=== PATIENT | female | born 1950 | race African-American/Black ===

== ENCOUNTER 2018-04-18 17:26 | Inpatient (IN) | payer MEDICARE, MEDICAID ==
[~2018-04-18] VITALS: Ht 160 cm; Wt 49.5 kg
[2018-04-18] MEDS ORDERED: SODIUM CHLORIDE 0.9% 1000ML BAG (SEPSIS BOLUS) IV ONE (17:45)
[2018-04-18] MEDS ORDERED: VANCOMYCIN 1 G PREMIX 200 ML IV ONE (17:45)
[2018-04-18] MEDS ORDERED: ACETAMINOPHEN 325MG TABLET PO STA (17:45)
[2018-04-18] MEDS ORDERED: PIPERACILLIN/TAZ 3.375G PREMIX 50 ML IV ONE (17:45)
[2018-04-18 18:20] LABS: BG BASE EXCESS 3.9 mmol/L (-2.0-2.0); BG CARBOXYHEMOGLOBIN 0.4 % (0.5-1.5); BG DEOXYHEMOGLOBIN 5.1 % (0.0-5.0); BG HCO3 ACT 28.1 mmol/L (22.0-26.0); BG METHEMOGLOBIN 0.4 % (0.0-1.5); BG OXYGEN SATURATION 94.9 % (92.0-98.5); BG OXYHEMOGLOBIN 94.1 % (94.0-97.0); BG PCO2 41.1 mmHg (35.0-45.0); BG PH 7.453 (7.350-7.450); BG PO2 67.1 mmHg (75.0-100.0); BG SAMPLE SITE RIGHT BRACHIAL; BG TOTAL HEMOGLOBIN 11.2 g/dL (12.0-18.0); BG VENT MODE NASAL CANNULA
[2018-04-18] MEDS ORDERED: ACETAMINOPHEN 160MG/5ML UDC PO ONE (18:30)
[2018-04-18 19:22] LABS: HEMATOCRIT. 31.2 % (36.0-48.0); HEMOGLOBIN. 10.4 g/dL (12.0-16.0); MEAN CORPUSCULAR HEMOGLOBIN 27.5 pg (28.0-32.0); MEAN CORPUSCULAR VOLUME 82.7 fL (81.0-99.0); MEAN PLATELET VOLUME 9.8 fl (7.4-10.4); PLATELET 374 x1000/uL (130-400); RED BLOOD CELL COUNT 3.77 mill/uL (4.2-5.4); RED CELL DISTRIBUTION WIDTH 16.7 % (11.6-14.6)
[2018-04-18 19:23] LABS: CHLORIDE 99 mEq/L (98-107); INR 1.2
[2018-04-18 19:39] LABS: CLARITY URINE CLEAR (CLEAR); COLOR URINE YELLOW (YELLOW); KETONES URINE NEGATIVE (NEGATIVE); LEUKOCYTE ESTERASE URINE TRACE (NEGATIVE); NITRITE URINE NEGATIVE (NEGATIVE); OCCULT BLOOD URINE TRACE (NEGATIVE); PH URINE 7.5 (4.5-8.0); PROTEIN URINE 1+ (NEGATIVE); SPECIFIC GRAVITY URINE 1.018 (1.005-1.030); UROBILINOGEN URINE 0.2 E.U./dL (0.2-1.0)
[2018-04-18] MEDS ORDERED: ALBUTEROL (0.083%) 2.5MG/3ML NEB HHN ONE (19:45)
[2018-04-18] MEDS ORDERED: SODIUM BICARBONATE 8.4% 1 MEQ/ML 50ML SYR IV ONE (19:45)
[2018-04-18] MEDS ORDERED: INSULIN REGULAR (HUMULIN R) 300UNITS/3ML IV ONE (19:45)
[2018-04-18] MEDS ORDERED: DEXTROSE 50% WATER 50ML SYRINGE IV ONE (19:45)
[2018-04-18 19:49] LABS: PLATELET ESTIMATE NORMAL
[2018-04-18] MEDS ORDERED: QUET200T29 MT (20:00)
[2018-04-18 21:00] LABS: CHLORIDE 101 mEq/L (98-107)
[2018-04-18] MEDS ORDERED: SODIUM CHLORIDE 0.9% 1,000 ML IV ONE (21:00)
[2018-04-18] MEDS ORDERED: NA PHOS,M-B/NA PHOS,DI-BA ENEMA 118ML PR PRN (21:30)
[2018-04-18] MEDS ORDERED: LORAZEPAM 2MG/ML CPJ IV PRN (21:30)
[2018-04-18] MEDS ORDERED: PIPERACILLIN/TAZ 3.375G PREMIX 50 ML IV SCH (21:30)
[2018-04-18] MEDS ORDERED: GUAIFENESIN 200MG/10ML SUGAR FREE UDC PO PRN (21:30)
[2018-04-18] MEDS ORDERED: CLONIDINE 0.1MG TABLET PO PRN (21:30)
[2018-04-18] MEDS ORDERED: ACETAMINOPHEN 325MG TABLET PO PRN (21:30)
[2018-04-18] MEDS ORDERED: DIPHENHYDRAMINE 50MG/ML VIAL IV PRN (21:30)
[2018-04-18] MEDS ORDERED: DOCUSATE SODIUM 100MG CAPSULE PO PRN (21:30)
[2018-04-18] MEDS ORDERED: IPRATROPIUM/ALBUTEROL 0.5-3(2.5)MG/3ML NEB INH PRN (21:30)
[2018-04-18] MEDS ORDERED: ONDANSETRON HCL 4MG/2ML INJ IV PRN (21:30)
[2018-04-18] MEDS ORDERED: MAGNESIUM/ALUMINUM HYDROXIDE/SIMETHICONE 30ML UDC PO PRN (21:30)
[2018-04-18] MEDS ORDERED: ACETAMINOPHEN 650MG SUPP PR PRN (21:30)
[2018-04-19 00:14] LABS: CREATINE KINASE 66 IU/L (26-192)
[2018-04-19 00:15] LABS: CREATINE KINASE MB FRACTION < 1.0 ng/mL (0.5-3.6)
[2018-04-19 01:35] VITALS: BP 160/99
[2018-04-19] MEDS ORDERED: TRAM-529 PO (02:32)
[2018-04-19] MEDS ORDERED: ASPI-1158 PO (02:51)
[2018-04-19] MEDS ORDERED: FAMO20TA8 PO (02:51)
[2018-04-19] MEDS ORDERED: ISOS10TA2 PO (02:51)
[2018-04-19] MEDS ORDERED: ATOR40TA70 GT (02:51)
[2018-04-19] MEDS ORDERED: CALC-3 PO (02:51)
[2018-04-19] MEDS ORDERED: ACET-2853 PO (02:51)
[2018-04-19] MEDS ORDERED: ALEN70TA46 PO (02:51)
[2018-04-19] MEDS ORDERED: ALBU4TAB6 INH (02:51)
[2018-04-19] MEDS ORDERED: FERR325T6 PO (02:51)
[2018-04-19] MEDS ORDERED: METO-539 PO (02:51)
[2018-04-19] MEDS ORDERED: GABA-290 GT (02:51)
[2018-04-19] MEDS: MORPHINE SULFATE 4 MG/ML CPJ (NOT FOR IM USE) IV PRN ×2 (03:52→20:57)
[2018-04-19 04:00] VITALS: BP 163/103
[2018-04-19] MEDS: PIPERACILLIN/TAZ 2.25G PREMIX 50 ML IV SCH ×3 (04:50→18:07)
[2018-04-19 06:23] LABS: HEMATOCRIT. 30.7 % (36.0-48.0); HEMOGLOBIN. 9.8 g/dL (12.0-16.0); MEAN CORPUSCULAR HEMOGLOBIN 26.8 pg (28.0-32.0); MEAN CORPUSCULAR VOLUME 83.5 fL (81.0-99.0); PLATELET 262 x1000/uL (130-400); RED BLOOD CELL COUNT 3.67 mill/uL (4.2-5.4); RED CELL DISTRIBUTION WIDTH 15.9 % (11.6-14.6)
[2018-04-19] MEDS ORDERED: MEDICATION NOT ON FORMULARY EA (Gabapentin 600 MG) GT SCH (07:00)
[2018-04-19 07:09] LABS: CHLORIDE 103 mEq/L (98-107)
[2018-04-19] MEDS ORDERED: MEDICATION NOT ON FORMULARY EA (Famotidine 20 MG) PO SCH (07:10)
[2018-04-19 07:32] LABS: CREATINE KINASE 64 IU/L (26-192)
[2018-04-19] MEDS ORDERED: ATORVASTATIN CALCIUM 40MG TABLET GT SCH (07:40)
[2018-04-19 08:00] VITALS: BP 115/74
[2018-04-19] MEDS: METOPROLOL TARTRATE 50MG TABLET PO SCH ×2 (08:56→20:58)
[2018-04-19] MEDS: GABAPENTIN 300MG CAPSULE PO SCH ×2 (08:56→20:59)
[2018-04-19] MEDS: ASPIRIN 81MG EC TABLET PO SCH (08:57)
[2018-04-19] MEDS: FERROUS SULFATE 325MG TABLET PO SCH ×3 (08:57→18:03)
[2018-04-19] MEDS: ENOXAPARIN 40MG/0.4ML SYR SUBCUT SCH (08:58)
[2018-04-19] MEDS ORDERED: MEDICATION NOT ON FORMULARY EA (Ferrous Sulfate 325 MG) PO SCH (09:00)
[2018-04-19] MEDS ORDERED: MEDICATION NOT ON FORMULARY EA (Metoprolol Tartrate 50 MG) PO SCH (09:00)
[2018-04-19] MEDS ORDERED: MEDICATION NOT ON FORMULARY EA (Isosorbide Dinitrate 10 MG) PO SCH (09:00)
[2018-04-19] MEDS ORDERED: MEDICATION NOT ON FORMULARY EA (Aspirin (Aspirin Ec) 81 MG) PO SCH (09:30)
[2018-04-19] MEDS ORDERED: INFLUENZA VIRUS VACCINE(AFLURIA) 0.5ML SYR IM ONE (10:00)
[2018-04-19] MEDS: ISOSORBIDE DINITRATE 10MG TABLET PO SCH (10:07)
[2018-04-19] MEDS ORDERED: DEXTROSE 50% WATER 50ML SYRINGE IV PRN (11:00)
[2018-04-19 12:00] VITALS: BP 90/52
[2018-04-19] MEDS: IPRATROPIUM/ALBUTEROL 0.5-3(2.5)MG/3ML NEB HHN SCH (12:20)
[2018-04-19] MEDS: BLOOD SUGAR DIAGNOSTIC STRIP TEST SCH ×3 (12:29→20:33)
[2018-04-19 13:48] LABS: PLATELET ESTIMATE NORMAL
[2018-04-19] MEDS: HYDROCODONE/ACETAMINOPHEN 5/325MG TABLET PO PRN (15:32)
[2018-04-19 16:51] VITALS: BP 103/67
[2018-04-19 20:00] VITALS: BP 155/81
[2018-04-19] MEDS: ATORVASTATIN CALCIUM 40MG TABLET GT SCH (20:58)
[2018-04-19] MEDS: QUETIAPINE FUMARATE 100MG TABLET PO SCH (20:58)
[2018-04-19] MEDS ORDERED: MEDICATION NOT ON FORMULARY EA (Quetiapine Fumarate 1 TAB) MT SCH (21:00)
[2018-04-20] VITALS: BP 90/52
[2018-04-20] MEDS: PIPERACILLIN/TAZ 2.25G PREMIX 50 ML IV SCH ×5 (00:23→23:11)
[2018-04-20 04:00] VITALS: BP 92/54
[2018-04-20] MEDS: BLOOD SUGAR DIAGNOSTIC STRIP TEST SCH ×4 (05:58→21:35)
[2018-04-20] MEDS: FAMOTIDINE 20MG TABLET PO SCH (06:01)
[2018-04-20 06:11] LABS: HEMATOCRIT. 28.4 % (36.0-48.0); HEMOGLOBIN. 9.3 g/dL (12.0-16.0); MEAN CORPUSCULAR VOLUME 82.6 fL (81.0-99.0); MEAN PLATELET VOLUME 9.2 fl (7.4-10.4); PLATELET 284 x1000/uL (130-400); RED BLOOD CELL COUNT 3.44 mill/uL (4.2-5.4); RED CELL DISTRIBUTION WIDTH 15.9 % (11.6-14.6)
[2018-04-20 06:57] LABS: CHLORIDE 103 mEq/L (98-107)
[2018-04-20 07:09] LABS: PLATELET ESTIMATE NORMAL
[2018-04-20 08:07] VITALS: BP 100/60
[2018-04-20] MEDS: METOPROLOL TARTRATE 50MG TABLET PO SCH ×2 (09:00→21:20)
[2018-04-20] MEDS: ASPIRIN 81MG EC TABLET PO SCH (09:30)
[2018-04-20] MEDS: FERROUS SULFATE 325MG TABLET PO SCH ×3 (09:30→18:12)
[2018-04-20] MEDS: HYDROCODONE/ACETAMINOPHEN 5/325MG TABLET PO PRN ×2 (09:30→21:28)
[2018-04-20] MEDS: GABAPENTIN 300MG CAPSULE PO SCH ×2 (09:30→21:20)
[2018-04-20] MEDS: ENOXAPARIN 40MG/0.4ML SYR SUBCUT SCH (09:31)
[2018-04-20 12:00] VITALS: BP 94/61
[2018-04-20] MEDS ORDERED: ACETYLCYSTEINE 100MG/ML 10% VIAL 4ML INH SCH (14:00)
[2018-04-20] MEDS: IPRATROPIUM/ALBUTEROL 0.5-3(2.5)MG/3ML NEB HHN SCH ×3 (14:09→19:50)
[2018-04-20 16:00] VITALS: BP 98/61
[2018-04-20 20:00] VITALS: BP 116/69
[2018-04-20] MEDS: QUETIAPINE FUMARATE 100MG TABLET PO SCH (21:18)
[2018-04-20] MEDS: ATORVASTATIN CALCIUM 40MG TABLET GT SCH (21:37)
[2018-04-21] VITALS: BP 100/59
[2018-04-21] MEDS: IPRATROPIUM/ALBUTEROL 0.5-3(2.5)MG/3ML NEB HHN SCH ×4 (00:11→11:09)
[2018-04-21 04:00] VITALS: BP 101/66
[2018-04-21] MEDS: FAMOTIDINE 20MG TABLET PO SCH (06:39)
[2018-04-21] MEDS: PIPERACILLIN/TAZ 2.25G PREMIX 50 ML IV SCH ×2 (06:39→12:34)
[2018-04-21] MEDS: BLOOD SUGAR DIAGNOSTIC STRIP TEST SCH ×2 (06:39→12:34)
[2018-04-21] MEDS: FERROUS SULFATE 325MG TABLET PO SCH ×2 (06:41→12:34)
[2018-04-21 06:43] LABS: HEMATOCRIT. 26.7 % (36.0-48.0); HEMOGLOBIN. 8.7 g/dL (12.0-16.0); MEAN CORPUSCULAR VOLUME 83.2 fL (81.0-99.0); MEAN PLATELET VOLUME 9.2 fl (7.4-10.4); PLATELET 270 x1000/uL (130-400); RED BLOOD CELL COUNT 3.21 mill/uL (4.2-5.4)
[2018-04-21 06:52] LABS: CHLORIDE 104 mEq/L (98-107)
[2018-04-21 08:00] VITALS: BP 115/68
[2018-04-21] MEDS ORDERED: POTASSIUM CHLORIDE 20MEQ TABLET SR PO SCH (08:30)
[2018-04-21] MEDS: ASPIRIN 81MG EC TABLET PO SCH (09:42)
[2018-04-21] MEDS: ENOXAPARIN 40MG/0.4ML SYR SUBCUT SCH (09:42)
[2018-04-21] MEDS: ISOSORBIDE DINITRATE 10MG TABLET PO SCH (09:43)
[2018-04-21] MEDS: GABAPENTIN 300MG CAPSULE PO SCH (09:44)
[2018-04-21] MEDS: METOPROLOL TARTRATE 50MG TABLET PO SCH (09:44)
[2018-04-21 11:29] VITALS: BP 115/68
[2018-04-21 12:00] VITALS: BP 139/68
[2018-04-21 16:57] LABS: PLATELET ESTIMATE NORMAL
[2018-04-25] MEDS ORDERED: ALENDRONATE SODIUM 35MG TABLET PO SCH (07:00)
== END 2018-04-21 14:10 | disposition home or self-care (01) | DRG 871 ==
LOC: ER 17:26 → 8WST 20:18 → EDBEDREQTM 20:22 → EDBEDREQSVC 20:22 → EDBEDREQ 20:22 → ENRESERV 23:49
PROVIDERS: ADMIT Internal Medicine; ATTEND Internal Medicine
DX: A41.9 Sepsis, unspecified organism (principal); J18.9 Pneumonia, unspecified organism; J96.20 Acute and chronic respiratory failure, unspecified whether with hypoxia or hypercapnia; J45.901 Unspecified asthma with (acute) exacerbation; E44.0 Moderate protein-calorie malnutrition; Z68.1 Body mass index [BMI] 19.9 or less, adult; I10 Essential (primary) hypertension; E88.09 Other disorders of plasma-protein metabolism, not elsewhere classified; E78.5 Hyperlipidemia, unspecified; F31.9 Bipolar disorder, unspecified; I25.10 Atherosclerotic heart disease of native coronary artery without angina pectoris; D64.9 Anemia, unspecified; Z85.21 Personal history of malignant neoplasm of larynx; Z95.5 Presence of coronary angioplasty implant and graft; Z87.891 Personal history of nicotine dependence; Z93.1 Gastrostomy status; I25.2 Old myocardial infarction
CPT/HCPCS: 36415; 36600; 71045; 80048; 82375; 82550; 82553; 82805; 82962; 83605; 84443; 84484; 87804; 90686; 93005; 94640; 96365; 96368; 96375; 99291; C1893; J1650; J1815; J2270; J2543; J3370; J3490; J7030; J7608; J7611; J7620

== ENCOUNTER 2018-04-24 18:09 | Inpatient (IN) | payer MEDICARE, MEDICAID ==
[~2018-04-24] VITALS: Ht 160 cm; Wt 54.9 kg
[~2018-04-24 18:09] MED LIST: ACET-2853 PO; ALBU4TAB6 INH; ALEN70TA46 PO; ASPI-1158 PO; ATOR40TA70 GT; CALC-3 PO; FAMO20TA8 PO; FERR325T6 PO; GABA-290 GT; ISOS10TA2 PO; METO-539 PO; QUET200T29 MT
[2018-04-24 20:08] LABS: HEMATOCRIT. 27.2 % (36.0-48.0); MEAN CORPUSCULAR HEMOGLOBIN 27.3 pg (28.0-32.0); MEAN CORPUSCULAR VOLUME 82.4 fL (81.0-99.0); MEAN PLATELET VOLUME 7.5 fl (7.4-10.4); PLATELET 422 x1000/uL (130-400); RED CELL DISTRIBUTION WIDTH 16.1 % (11.6-14.6)
[2018-04-24 20:12] LABS: CHLORIDE 103 mEq/L (98-107)
[2018-04-24 21:22] LABS: PLATELET ESTIMATE NORMAL
[2018-04-24] MEDS ORDERED: ONDANSETRON HCL 4MG/2ML INJ IV PRN (22:15)
[2018-04-24] MEDS ORDERED: IPRATROPIUM/ALBUTEROL 0.5-3(2.5)MG/3ML NEB INH PRN (22:15)
[2018-04-24] MEDS ORDERED: ACETAMINOPHEN 650MG SUPP PR PRN (22:15)
[2018-04-24] MEDS ORDERED: MORPHINE SULFATE 2 MG/ML CPJ (NOT FOR IM USE) IV PRN (22:15)
[2018-04-24] MEDS ORDERED: NITROGLYCERIN 0.4MG TABLET SL SL PRN (22:15)
[2018-04-24] MEDS ORDERED: KCL 20MEQ/100ML PREMIX 100 ML IV NR (22:30)
[2018-04-24 23:02] LABS: TOTAL IRON BINDING CAPACITY 181 ug/dL (250-450)
[2018-04-24] MEDS ORDERED: IOHEXOL-300 100 ML BOTTLE ONE (23:03)
[2018-04-24] MEDS ORDERED: PIPERACILLIN/TAZ 3.375G PREMIX 50 ML IV NR (23:45)
[2018-04-24] MEDS ORDERED: VANCOMYCIN 1 G PREMIX 200 ML IV NR (23:45)
[2018-04-25 02:43] VITALS: BP_SYST 153; BP_SYST 163; BP_DIAS 104; BP_DIAS 99
[2018-04-25] MEDS: DEXT 5%/LACTATED RINGERS 1,000 ML IV SCH ×2 (03:29→13:47)
[2018-04-25 04:00] VITALS: BP_SYST 142; BP_SYST 163; BP_DIAS 104; BP_DIAS 85
[2018-04-25 08:00] VITALS: BP 170/107
[2018-04-25] MEDS ORDERED: PIPERACILLIN/TAZ 3.375G PREMIX 50 ML IV SCH (08:00)
[2018-04-25] MEDS: PANTOPRAZOLE SODIUM 40 MG/VIAL IV SCH (08:57)
[2018-04-25] MEDS: ENOXAPARIN 40MG/0.4ML SYR SUBCUT SCH (08:58)
[2018-04-25] MEDS ORDERED: LABETALOL HCL 200MG TABLET PO SCH (09:00)
[2018-04-25] MEDS: VANCOMYCIN 750 MG PREMIX 150 ML IV SCH ×2 (11:18→22:42)
[2018-04-25 12:00] VITALS: BP 149/82
[2018-04-25] MEDS ORDERED: VANCOMYCIN 1 G PREMIX 200 ML IV SCH (12:00)
[2018-04-25] MEDS: PIPERACILLIN/TAZ 3.375G PREMIX 50 ML IV SCH ×3 (12:56→23:48)
[2018-04-25] MEDS ORDERED: DIATR MEGLU/DIATRIZOATE SOLN 30ML ONE (14:05)
[2018-04-25 16:00] VITALS: BP 185/104
[2018-04-25] MEDS ORDERED: KCL 20MEQ/100ML PREMIX 100 ML IV NR (18:00)
[2018-04-25 20:00] VITALS: BP 142/89
[2018-04-25 20:10] LABS: HEMATOCRIT 31.3 % (36.0-48.0); HEMOGLOBIN 10.3 g/dL (12.0-16.0)
[2018-04-25] MEDS ORDERED: MORPHINE SULFATE 4 MG/ML CPJ (NOT FOR IM USE) IV PRN (20:28)
[2018-04-25] MEDS: LORAZEPAM 2MG/ML CPJ IV PRN (20:32)
[2018-04-26] VITALS (8 sets, daily range): BP systolic 130–188; BP diastolic 82–102
[2018-04-26] MEDS: LORAZEPAM 2MG/ML CPJ IV PRN (01:01)
[2018-04-26] MEDS: PIPERACILLIN/TAZ 3.375G PREMIX 50 ML IV SCH ×3 (06:08→17:23)
[2018-04-26 07:00] LABS: INR 1.1; PARTIAL THROMBOPLASTIN TIME 37.1 sec (23.4-31.0); PROTHROMBIN TIME 11.5 sec (9.1-11.1)
[2018-04-26 07:05] LABS: BASOPHILS % 1.1 % (0.0-2.0); EOSINOPHILS % 2.8 % (0.0-5.0); HEMATOCRIT. 30.8 % (36.0-48.0); HEMOGLOBIN. 10.1 g/dL (12.0-16.0); LYMPHOCYTES % 12.7 % (20.0-50.0); MEAN CORPUSCULAR HEMOGLOBIN 26.6 pg (28.0-32.0); MEAN PLATELET VOLUME 7.5 fl (7.4-10.4); MONOCYTES % 12.6 % (2.0-8.0); NEUTROPHILS % 70.8 % (40.0-76.0); PLATELET 501 x1000/uL (130-400); RED CELL DISTRIBUTION WIDTH 16.2 % (11.6-14.6)
[2018-04-26 07:40] LABS: CHLORIDE 103 mEq/L (98-107)
[2018-04-26] MEDS: PANTOPRAZOLE SODIUM 40 MG/VIAL IV SCH (09:16)
[2018-04-26] MEDS: ENOXAPARIN 40MG/0.4ML SYR SUBCUT SCH (09:16)
[2018-04-26] MEDS: DEXT 5%/LACTATED RINGERS 1,000 ML IV SCH ×2 (09:17→17:23)
[2018-04-26] MEDS ORDERED: HALOPERIDOL 1MG TABLET PO PRN (09:45)
[2018-04-26] MEDS ORDERED: HALOPERIDOL LACTATE 5MG/ML VIAL IM PRN (10:00)
[2018-04-26] MEDS ORDERED: CLONIDINE HCL 0.3MG/24HR PATCH TD SCH (10:00)
[2018-04-26] MEDS ORDERED: KCL 20MEQ/100ML PREMIX 100 ML IV NR (10:30)
[2018-04-26] MEDS ORDERED: DIATR MEGLU/DIATRIZOATE SOLN 30ML ONE (11:25)
[2018-04-26] MEDS: VANCOMYCIN 750 MG PREMIX 150 ML IV SCH ×2 (14:05→22:49)
[2018-04-26] MEDS ORDERED: HYDRALAZINE 10 MG in SODIUM CHLORIDE 0.9% 49.5 ML IV PRN (21:30)
[2018-04-26] MEDS ORDERED: HYDRALAZINE 20MG/ML VIAL IV PRN (21:30)
[2018-04-26 23:32] LABS: VITAMIN B12 SERUM 1192 pg/mL (211-911)
[2018-04-26] MEDS: NITROGLYCERIN 0.4MG/HR PATCH TOP SCH (23:33)
[2018-04-26 23:35] LABS: FOLIC ACID (FOLATE) SERUM > 20.00 ng/mL (>5.38)
[2018-04-27] VITALS: BP 148/88
[2018-04-27] MEDS: PIPERACILLIN/TAZ 3.375G PREMIX 50 ML IV SCH ×4 (00:01→17:41)
[2018-04-27 04:00] VITALS: BP 150/91
[2018-04-27] MEDS: DEXT 5%/LACTATED RINGERS 1,000 ML IV SCH ×2 (06:07→17:55)
[2018-04-27 08:00] VITALS: BP 151/96
[2018-04-27] MEDS: PANTOPRAZOLE SODIUM 40 MG/VIAL IV SCH (08:36)
[2018-04-27] MEDS: NITROGLYCERIN 0.4MG/HR PATCH TOP SCH (08:37)
[2018-04-27] MEDS: ENOXAPARIN 40MG/0.4ML SYR SUBCUT SCH (08:37)
[2018-04-27] MEDS: VANCOMYCIN 750 MG PREMIX 150 ML IV SCH ×2 (10:52→22:36)
[2018-04-27 12:00] VITALS: BP 159/96
[2018-04-27 16:00] VITALS: BP 135/84
[2018-04-27 20:00] VITALS: BP 143/85
[2018-04-28] VITALS: BP 165/91
[2018-04-28] MEDS: PIPERACILLIN/TAZ 3.375G PREMIX 50 ML IV SCH ×3 (00:27→12:34)
[2018-04-28 04:00] VITALS: BP 160/97
[2018-04-28 08:00] VITALS: BP 143/83
[2018-04-28] MEDS: ENOXAPARIN 40MG/0.4ML SYR SUBCUT SCH (09:08)
[2018-04-28] MEDS: NITROGLYCERIN 0.4MG/HR PATCH TOP SCH (09:08)
[2018-04-28] MEDS: PANTOPRAZOLE SODIUM 40 MG/VIAL IV SCH (09:08)
[2018-04-28] MEDS: VANCOMYCIN 750 MG PREMIX 150 ML IV SCH (10:46)
[2018-04-28] MEDS: DEXT 5%/LACTATED RINGERS 1,000 ML IV SCH (10:47)
[2018-04-28 12:00] VITALS: BP 146/91
[2018-04-28 15:56] VITALS: BP 135/80
[2018-04-28 16:00] VITALS: BP 135/80
== END 2018-04-28 16:56 | disposition home health service (06) | DRG 919 ==
LOC: ER 18:09 → 6EST 21:56 → SUPCPDRO 22:04 → EDBEDREQTM 22:22 → EDBEDREQ 22:22 → ENRESERV 04-25 01:15 → 6EST 04-26 08:53
PROVIDERS: ADMIT Internal Medicine; ATTEND Internal Medicine
PROC: 0DH63UZ Insertion of Feeding Device into Stomach, Percutaneous Approach (ICD-10-PCS; principal; 2018-04-26)
DX: T85.598A Other mechanical complication of other gastrointestinal prosthetic devices, implants and grafts, initial encounter (principal); J69.0 Pneumonitis due to inhalation of food and vomit; E43 Unspecified severe protein-calorie malnutrition; L03.90 Cellulitis, unspecified; G62.9 Polyneuropathy, unspecified; I95.9 Hypotension, unspecified; Y83.8 Other surgical procedures as the cause of abnormal reaction of the patient, or of later complication, without mention of misadventure at the time of the procedure; E87.6 Hypokalemia; D63.8 Anemia in other chronic diseases classified elsewhere; E78.00 Pure hypercholesterolemia, unspecified; I10 Essential (primary) hypertension; Z85.21 Personal history of malignant neoplasm of larynx; Z87.01 Personal history of pneumonia (recurrent); Z79.82 Long term (current) use of aspirin; I25.2 Old myocardial infarction; Z79.899 Other long term (current) drug therapy; Y92.89 Other specified places as the place of occurrence of the external cause; Z68.21 Body mass index [BMI] 21.0-21.9, adult
CPT/HCPCS: 36415; 49450; 71045; 74018; 74176; 80048; 80202; 82607; 82746; 83036; 83540; 83550; 85014; 85018; 93306; 93970; 96365; 96368; 97162; 97166; 99285; C1893; C9113; J0360; J1630; J1650; J2060; J2270; J2543; J3370; J3480; Q9963; Q9967

== ENCOUNTER 2018-06-16 11:30 | Emergency (ER) | payer MEDICARE, MEDICAID ==
[~2018-06-16] VITALS: Ht 160 cm; Wt 55.0 kg
[2018-06-16 11:42] VITALS: BP 96/56
== END 2018-06-16 12:46 | disposition left against medical advice (07) ==
LOC: ER 11:30
DX: R68.89 Other general symptoms and signs (principal); Z53.21 Procedure and treatment not carried out due to patient leaving prior to being seen by health care provider